=== PATIENT | male | born 1965 | race Caucasian/White ===

== ENCOUNTER 2017-02-24 02:40 | Emergency (ER) | payer OTHER ==
[~2017-02-24 02:40] MED LIST: ALBU6.7H INH; NORV2.5T11 PO; [UNRECOGNIZED DRUG - REMARK]
[2017-02-24 02:48] VITALS: BP 142/81; PULSE 103; RESP 18; TEMP 99; O2SAT 98
--- NOTE | 2017-02-24 03:22 | PD ---
HPI Chief Complaint: Back/ Neck Pain or Injury Time Seen by Provider: 02:59 Travel History International Travel<30 days: No Contact w/Intl Traveler<30days: No Traveled to known affect area: No History of Present Illness HPI The patient is a 51 year old male who presents to the [facility] emergency department with a history of at approximately 10:30 PM this evening when doing ready to go to bed he had a pain that began in his back and radiated around to the lower abdomen bilaterally. He reports that the abdominal pain resolved, however he continues to have low back pain in the center of his low back. He reports that the pain reminds him of when he had a kidney stone 20-30 years ago. He reports that through the weekend he was sick, on Wednesday had numerous episodes of diarrhea. He reports that the diarrhea resolved, however he felt weak and dehydrated on Wednesday with chills and a subjective fever. He reports that Wednesday he began to feel slightly improved into the he began the small meals. He denies any dysuria, hematuria, urinary urgency, or frequency, however he reports that he does have a sensation of difficulty starting his stream of urine that began tonight around 10:30 PM. The patient denies any cough , congestion, neck pain, chest pain, shortness of breath, or neurologic symptoms. [facility] Past Medical History Narrative Medical The patient's past medical history is significant for SVT status post ablation, hypertension, diabetes mellitus, depression, remote history of kidney stones, history of prior bladder infections and prostatitis. Arthritis: No Asthma: No Autoimmune Disease: No Blood Disorders: No Anxiety: No Depression: Yes Heart Rhythm Problems: Yes (SVT) Cancer: No Cardiovascular Problems: Yes (svt, hypertension) High Cholesterol: Yes Chest Pain: No Congestive Heart Failure: No COPD: No Cerebrovascular Accident: No Diabetes: Yes Patient Takes Glucophage: Yes Diminished Hearing: No Gastrointestinal Disorders: No GERD: No Glaucoma: No Genitourinary: Yes (PROSTATITIS AND FREQ BLADDER INFECTIONS) Hepatitis: No Hiatal Hernia: No Hypertension: Yes Kidney Stones: Yes Myocardial Infarction: No Renal Failure: No Seizures: No Sickle Cell Disease: No Sleep Apnea: Yes Thyroid Disease: No Ulcer: No Past Surgical History Narrative Surgical The patient's past surgical history is significant for a Veronica fundoplication in 1995, laparoscopic hernia repair, Lasik eye surgery, wisdom teeth extraction , cardiac catheterization with ablation. Abdominal Surgery: Yes (lparoscopy hernia repair and inguinal hernia repair, LAP WITH JORDON FUNDUP) AICD: No Cardiac Surgery: Yes (ABLASION FOR SVT) Endocrine Surgery: No Eye Surgery: Yes (lasik surgery) Genitourinary Surgery: No Gynecologic Surgery: No Oral Surgery: Yes (wisdom teeth removed) Pacemaker: No Thoracic Surgery: No Other Surgery: Yes Social History Alcohol Use: Yes (1 BEER EVERY MONTH) Tobacco Use: No Substance Use: No Allergies-Medications (Allergen,Severity, Reaction): Coded Allergies: Bumble Bee (Verified Allergy, Severe, Anaphylaxis, 02/24/17) Reported Meds & Prescriptions Reported Meds & Active Scripts Active Cipro (Ciprofloxacin HCl) 250 Mg Tab 250 Mg PO BID 19 Days Proventil Hfa (Albuterol Sulfate) 6.7 Gm Aero 2 Puff INH Q4-6HPRN Reported Norvasc (Amlodipine Besylate) 2.5 Mg Tab 2.5 Mg PO DAILY [Hctz With Something ] Review of Systems Except as stated in HPI: all other systems reviewed are Neg General / Constitutional: No: Fever Eyes: No: Visual changes HENT: No: Headaches Cardiovascular: No: Chest Pain or Discomfort Respiratory: No: Shortness of Breath Gastrointestinal: Positive: Diarrhea, Abdominal Pain, Changes in Bowel Habits, Loss of Appetite, No: Nausea, Vomiting, Hematemesis, Hematochezia, Indigestion Genitourinary: Positive: Hesitancy, No: Frequency, Dysuria Musculoskeletal: Positive: Myalgias, Arthralgias, Pain Skin: No Rash Neurologic: No: Weakness Psychiatric: No: Depression Endocrine: No: Polydipsia Hematologic/Lymphatic: No: Easy Bruising Physical Exam Narrative General: The patient is a well-developed well-nourished male in no acute distress. Head and Neck exam: Head is normocephalic atraumatic. Eyes: EOMI, pupils are equal round and reactive to light. Nose: Midline septum with pink mucous membranes Mouth: Dentition unremarkable. Tacky mucus membranes. Posterior oropharynx is not erythematous. No tonsillar hypertrophy. Uvula midline. Airway patent. Neck: No palpable lymphadenopathy. No nuchal rigidity. No thyromegaly. Cardiovascular: Sinus tachycardia in the low 100s without murmurs, gallops, or rubs. No pulse deficit to the extremities and simultaneous auscultation and palpation of his radial artery. Lungs: Clear to auscultation bilaterally. No wheezes, rhonchi, or rales. Abdomen: Soft, without tenderness to palpation in all 4 quadrants of the abdomen. No guarding, rebound, or rigidity. Normal bowel sounds are audible. No tenderness on palpation of McBurney's point. Negative [place] sign. Extremities: No clubbing, cyanosis, or edema. 2+ pulses in all 4 extremities. No calf tenderness on palpation. Back: No spinous process tenderness to palpation. No costovertebral angle tenderness to palpation. The patient shows the area of pain as being in the lumbar area, upper sacral area, however there is no tenderness on palpation. Neurologic Exam: Grossly nonfocal. Skin Exam: No rash noted. Intact skin that is warm and dry. Data Data Last Documented VS Vital Signs Date Time Temp Pulse Resp B/P Pulse Ox O2 Delivery O2 Flow Rate FiO2 02/24/17 02:48 99.0 103 18 142/81 98 Orders Complete Blood Count With Diff (02/24/17 03:20) Comprehensive Metabolic Panel (02/24/17 03:20) Lipase (02/24/17 03:20) Urinalysis - C+S If Indicated (02/24/17 03:20) Iv Access Insert/Monitor (02/24/17 03:20) Ecg Monitoring (02/24/17 03:20) Oximetry (02/24/17 03:20) Sodium Chlor 0.9% 1000 Ml Inj (Ns 1000 M (02/24/17 04:00) Ondansetron Inj (Zofran Inj) (02/24/17 04:00) Ketorolac Inj (Toradol Inj) (02/24/17 04:15) Ct Abd/Pel W/O Iv Contrast (02/24/17 05:06) Ciprofloxacin (Cipro) (02/24/17 06:30) Labs Laboratory Tests Test 02/24/17 03:30 White Blood Count 12.2 TH/MM3 Red Blood Count 5.49 MIL/MM3 Hemoglobin 16.0 GM/DL Hematocrit 46.7 % Mean Corpuscular Volume 85.2 FL Mean Corpuscular Hemoglobin 29.1 PG Mean Corpuscular Hemoglobin 34.2 % Concent Red Cell Distribution Width 13.9 % Platelet Count 233 TH/MM3 Mean Platelet Volume 8.2 FL Neutrophils (%) (Auto) 74.0 % Lymphocytes (%) (Auto) 13.1 % Monocytes (%) (Auto) 11.5 % Eosinophils (%) (Auto) 1.3 % Basophils (%) (Auto) 0.1 % Neutrophils # (Auto) 9.0 TH/MM3 Lymphocytes # (Auto) 1.6 TH/MM3 Monocytes # (Auto) 1.4 TH/MM3 Eosinophils # (Auto) 0.2 TH/MM3 Basophils # (Auto) 0.0 TH/MM3 CBC Comment DIFF FINAL Differential Comment Urine Color LIGHT-YELLOW Urine Turbidity CLEAR Urine pH 5.5 Urine Specific [place] 1.005 Urine Protein TRACE mg/dL Urine Glucose (UA) NEG mg/dL Urine Ketones NEG mg/dL Urine Occult Blood NEG Urine Nitrite NEG Urine Bilirubin NEG Urine Urobilinogen LESS THAN 2.0 MG/DL Urine Leukocyte Esterase NEG Urine RBC LESS THAN 1 /hpf Urine WBC 2 /hpf Urine Squamous Epithelial <1 /hpf Cells Urine Amorphous Sediment RARE Urine Bacteria RARE /hpf Urine Hyaline Casts 1 /lpf Urine Mucus FEW /lpf Microscopic Urinalysis Comment CULT NOT INDICATED Sodium Level 137 MEQ/L Potassium Level 3.7 MEQ/L Chloride Level 103 MEQ/L Carbon Dioxide Level 23.6 MEQ/L Anion Gap 10 MEQ/L Blood Urea Nitrogen 25 MG/DL Creatinine 2.16 MG/DL Estimat Glomerular Filtration 32 ML/MIN Rate Random Glucose 123 MG/DL Calcium Level 9.1 MG/DL Total Bilirubin 0.6 MG/DL Aspartate Amino Transf 40 U/L (AST/SGOT) Alanine Aminotransferase 57 U/L (ALT/SGPT) Alkaline Phosphatase 73 U/L Total Protein 8.1 GM/DL Albumin 4.4 GM/DL Lipase 220 U/L [facility] Medical Decision Making Medical Screen Exam Complete: Yes Emergency Medical Condition: Yes Medical Record Reviewed: Yes Differential Diagnosis Kidney stone, versus prostatitis, versus colitis, versus musculoskeletal strain Narrative Course During the course of the patients emergency department visit, the patients history, examination, and differential diagnosis were reviewed with the patient. The patient had IV access obtained and blood work sent for analysis. The patient was placed on a quality assurance monitor with oximetry and blood pressure monitoring. The patient was initially provided normal saline a 1 L IV fluid bolus, Zofran 4 mg IV, Toradol 15 mg IV. The patients laboratory studies were reviewed and remarkable for a urinalysis that shows rare bacteria, few mucus. CBC shows a white count 12.2, hemoglobin 16, platelets 233 with 74 neutrophils, CMP is remarkable for BUN of 25, creatinine 2.16, glucose 123, AST 40, lipase 220, urinalysis shows rare bacteria. Radiology studies were reviewed and remarkable for a CT scan of the abdomen and pelvis that shows no acute abnormality. Given the patient's urinary symptoms, back pain, prior history of prostatitis, an elevated white blood cell count, I explained that the patient that I was still concerned about the possibility of a recurrent prostatitis. The patient was agreeable with the plan to proceed with administration of ciprofloxacin. The patient was given a dose of 500 mg by mouth 1. The patient will be discharged home with ciprofloxacin 250 by mouth twice a day. The patient was instructed regarding the importance of pushing fluids and getting plenty of rest. The patient was instructed to follow-up with the urologist in the next 2 days. The patient is resting comfortably and feels better, is alert and in no distress. The patients results and examination findings were discussed with the patient. The repeat examination is unremarkable and benign. The history, exam, diagnostic testing, and current condition do not suggest any significant pathology to warrant further testing, continued ED treatment, admission, or surgical evaluation at this point. The vital signs have been stable. The patient does not have uncontrollable pain, intractable vomiting, or other significant symptoms. The patient's condition is stable and appropriate for discharge. The patient will pursue further outpatient evaluation with a primary care physician or other designated or consulting physician as indicated in the discharge instructions. The patient expressed understanding and was agreeable with this plan. Diagnosis Primary Impression: Prostatitis Qualified Code: N41.9 - Prostatitis, unspecified prostatitis type Additional Impression: Urinary symptom or sign Referrals: Urologist 2 days Patient Instructions: General Instructions, Prostatitis (ED) Med/Other Pt SpecificInfo: Prescription(s) given Scripts Ciprofloxacin (Cipro)250 Mg [id number] Mg PO BID 19 Days Ref 0 Prov:Mahsa Salguero MD 02/24/17 Disposition: DISCHARGE HOME Condition: Stable Mahsa Salguero MD February 24, 2017 03:22
[2017-02-24 03:59] LABS: BACTERIA, URINE RARE /hpf; BLOOD, URINE NEG (NEG); COMMENT (UR) CULT NOT INDICATED; CULTURE IF INDICATED CULT NOT INDICATED; GLUCOSE,URINE NEG (NEG); HYALINE CAST, URINE 1 /lpf (RARE); KETONE, URINE NEG (NEG); MUCUS URINE FEW /lpf (OCC); NITRITE,URINE NEG (NEG); PH, URINE 5.5 (5.0-8.5); SQUAMOUS EPITHELIAL CELL URINE <1 /hpf (0-5); URINE COLOR LIGHT-YELLOW (YELLW/STRAW)
[2017-02-24] MEDS ORDERED: SODIUM CHLOR 0.9% 1000 ML INJ 1,000 ML IV ONE (04:00)
[2017-02-24] MEDS ORDERED: ONDANSETRON HCL 4 MG/2 ML VIAL IV ONE (04:00)
[2017-02-24 04:09] LABS: BASOPHIL % 0.1 % (0.0-2.0); EOSINOPHIL # 0.2 TH/MM3 (0-0.4); EOSINOPHIL % 1.3 % (0.0-4.0); HEMATOCRIT 46.7 % (39.0-51.0); HEMO FLAGS DIFF FINAL; LYMPH % 13.1 % (9.0-44.0); LYMPHOCYTE # 1.6 TH/MM3 (1.0-4.8); MEAN CELL VOLUME 85.2 FL (80.0-100.0); MEAN CORPUSCULAR HEMOGLOBIN 29.1 PG (27.0-34.0); MEAN CORPUSCULAR HGB CONC 34.2 % (32.0-36.0); MONO % 11.5 % (0.0-8.0); PLATELET COUNT 233 TH/MM3 (150-450); RED BLOOD COUNT 5.49 MIL/MM3 (4.50-5.90); RED CELL DISTRIBUTION WIDTH 13.9 % (11.6-17.2); WHITE BLOOD COUNT 12.2 TH/MM3 (4.0-11.0)
[2017-02-24] MEDS ORDERED: KETOROLAC TROMETHAMINE 30 MG/ML (IVP) VIAL IV PUSH ONE (04:15)
[2017-02-24 04:27] LABS: ALKALINE PHOSPHATASE 73 U/L (45-117); TOTAL BILIRUBIN ADULT 0.6 MG/DL (0.2-1.0)
[2017-02-24 04:41] LABS: ALT (GPT) 57 U/L (12-78); ANION GAP 10 MEQ/L (5-15); AST (GOT) 40 U/L (15-37); BICARBONATE 23.6 MEQ/L (21.0-32.0); BLOOD UREA NITROGEN 25 MG/DL (7-18); CHLORIDE 103 MEQ/L (98-107); GLOMERULAR FILTRATION RATE 32 ML/MIN (>89); SODIUM (NA) 137 MEQ/L (136-145)
[2017-02-24 04:42] LABS: POTASSIUM 3.7 MEQ/L (3.5-5.1)
[2017-02-24] MEDS ORDERED: CIPROFLOXACIN 500 MG TAB PO ONE (06:30)
[2017-02-24] MEDS ORDERED: CIPR250T52 PO (06:51)
--- NOTE | 2017-02-24 08:27 | RADRPT ---
EXAM DATE/TIME: 02/24/2017 05:26 [place] COMPARISON: No previous studies available for comparison. INDICATIONS : Flank pain. Evaluate for kidney stones. ORAL CONTRAST: No oral contrast ingested. RADIATION DOSE: 13.27 CTDIvol (mGy) MEDICAL HISTORY : Hypertension. Irritable bowel syndrome. Renal calculi.Prostatitis. SURGICAL HISTORY : Inguinal hernia repair. ENCOUNTER: Initial ACUITY: 1 day PAIN SCALE: 5/10 LOCATION: Bilateral flank TECHNIQUE: Volumetric scanning of the abdomen and pelvis was performed. Using automated exposure control and ad justment of the mA and/or kV according to patient size, radiation dose was kept as low as reasonably achievable to obtain optimal diagnostic quality images. FINDINGS: LOWER LUNGS: The visualized lower lungs are clear. LIVER: Homogeneous density without lesion. There is no dilation of the biliary tree. No calcified gallston es. SPLEEN: Normal size without lesion. PANCREAS: Within normal limits. KIDNEYS: Normal in size and shape. There is no mass, stone, or hydronephrosis. ADRENAL GLANDS: Within normal limits. VASCULAR: There is no aortic aneurysm. BOWEL/MESENTERY: The stomach, small bowel, and colon demonstrate no acute abnormality. There is no free intraperitone al air or fluid. ABDOMINAL WALL: Within normal limits. RETROPERITONEUM: There is no lymphadenopathy. BLADDER: No wall thickening or mass. REPRODUCTIVE: Within normal limits. INGUINAL: Previous right inguinal mesh hernia repair. MUSCULOSKELETAL: Within normal limits for patient age. CONCLUSION: No evidence of kidney stones or hydronephrosis. No acute CT findings Naga Wesley MD on February 24, 2017 at 5:53 Board Certified Radiologist. This report was verified electronically.
== END 2017-02-24 07:08 | disposition home or self-care (01) ==
LOC: NEPE 02:40
DX: N41.9 Inflammatory disease of prostate, unspecified (principal); D72.829 Elevated white blood cell count, unspecified; I10 Essential (primary) hypertension
CPT/HCPCS: 74176; 80053; 81001; 83690; 85025; 96374; 96375; 99285; J1885; J2405; J7030